=== PATIENT | male | born 2000 | race Hispanic/Latino ===

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

== ENCOUNTER 2021-04-20 09:07 | Emergency (ER) | payer OTHER, SELFPAY ==
[2021-04-20] MEDS ORDERED: Acetaminophen 500 MG TAB ONE (11:57)
[2021-04-20 17:11] LABS: SARS-CoV-2 PCR by NAA Not Detected (NotDetected)
== END 2021-04-20 12:00 | disposition home or self-care (01) ==
LOC: ERS 09:07
DX: J06.9 Acute upper respiratory infection, unspecified (principal); Z20.822 Contact with and (suspected) exposure to COVID-19
CPT/HCPCS: 87804; 99283; U0003; U0005

== ENCOUNTER 2023-05-12 10:37 | Emergency (ER) | payer SELFPAY ==
[2023-05-12] MEDS ORDERED: Boostrix 0.5 ML (Tdap) VIAL (>/=7 yrs of age) ONE (11:42)
[2023-05-12] MEDS ORDERED: Lidocaine 1% PF 5 ML VIAL ONE (12:07)
== END 2023-05-12 13:04 | disposition home or self-care (01) ==
LOC: ERS 10:37
DX: S67.190A Crushing injury of right index finger, initial encounter (principal); S62.630A Displaced fracture of distal phalanx of right index finger, initial encounter for closed fracture; S60.021A Contusion of right index finger without damage to nail, initial encounter; W23.1XXA Caught, crushed, jammed, or pinched between stationary objects, initial encounter; Y99.0 Civilian activity done for income or pay; Z23 Encounter for immunization
CPT/HCPCS: 90471; 90715